=== PATIENT | male | born 1965 | race Asian ===

== ENCOUNTER → 2018-11-27 | Outpatient (CLI) | payer BC | LOC: CIMAGING 10:12 | PROVIDERS: ATTEND Family Medicine | DX: R60.0 Localized edema (principal) | CPT/HCPCS: 93971-PO ==

== ENCOUNTER → 2019-01-24 | Outpatient (CLI) | payer BC | LOC: BRMIMAGING 10:43 | DX: C73 Malignant neoplasm of thyroid gland (principal) ==